=== PATIENT | female | born 1960 | race Caucasian/White ===

== ENCOUNTER 2017-02-22 10:35 | Outpatient (CLI) | payer BC ==
[~2017-02-22] VITALS: Ht 157.5 cm; Wt 105.2 kg
[~2017-02-22 10:35] MED LIST: ATEN-156; ATEN50TA PO; ATN50T; CARB1TAB44 PO; CITA10TA70; CTLP20T; DULO60CA6; DULO60CA6 PO; EST.625T; EST.625T PO; EST1.25T; LAMO200T3 PO; NF-CYM60C; OMEP-10 PO; TPR100T; TRIA1CAP4 PO; TRIA1TAB3; [UNRECOGNIZED DRUG - CODE]
[2017-02-22] MEDS ORDERED: TRIAMCINOLONE ACET (KENALOG-40) 40 MG/ML 1 ML VIAL ONE (10:39)
[2017-02-22] MEDS ORDERED: BUPIVACAINE 0.25% 30 ML (SENSORCAINE) VIAL ONE (10:39)
[2017-02-22 11:02] VITALS: BP 144/82
[2017-02-22 11:46] VITALS: BP 152/83
--- NOTE | 2017-02-22 12:25 | Pain Medicine-Procedure ---
Procedure Pre-Op/Post-Op Diagnosis Diagnosis: disc disorder with radiculopathy, lumbar Indications for Operation Low back pain Attending Surgeon Harpreet Procedure Date of Service: Feb 22, 2017 Procedure: Lumbar Epidural Steroid Injection at the L4-L5 level under Fluoroscopic Guidance Procedure: Patient was identified in the holding area. After risks, benefits, and alternatives were discussed with the patient, informed consent was obtained. Patient was brought to the fluoroscopy suite and placed prone on the procedure room table. A time out was performed. Vital signs were monitored throughout the procedure. The patients low back was prepped and draped in the usual sterile fashion. The patients skin was anesthetized using 2% Lidocaine. A Tuohy needle was inserted and advanced to the L4-L5 epidural space under fluoroscopic guidance using the loss of resistance technique and intermittent projection of fluoroscopy. There was no paresthesia with needle placement. The needle position was confirmed in both the AP and lateral view. After negative aspiration 2ml of contrast was injected under live fluoroscopy which showed good spread of the contrast in the epidural space at the appropriate level, there was no intravascular or subarachnoid spread. Again, after negative aspiration for heme or CSF, 2 ml of 0.25% Bupivicaine, 2ml of preservative free normal saline, and 80mg of Kenalog was injected. The needle was removed and a sterile bandage was placed and the patient was transferred to the recovery area in stable condition. After a brief period of observation, patient was discharged to home with no new neurological deficits and no apparent complications. Complications None RUBEN ROGERS MD Feb 22, 2017 12:24 pm
== END 2017-02-22 11:47 ==
LOC: CARD 10:35
PROVIDERS: ATTEND Pain Medicine Pain Medicine
DX: M51.16 Intervertebral disc disorders with radiculopathy, lumbar region (principal); M53.3 Sacrococcygeal disorders, not elsewhere classified; Z79.899 Other long term (current) drug therapy
CPT/HCPCS: 62323; 82962

== ENCOUNTER → 2018-11-04 | Outpatient (CLI) | payer BC | LOC: CARD 13:14 | PROVIDERS: ATTEND Internal Medicine Cardiovascular Disease | DX: R07.9 Chest pain, unspecified (principal); E78.2 Mixed hyperlipidemia; I10 Essential (primary) hypertension; E11.9 Type 2 diabetes mellitus without complications; I08.2 Rheumatic disorders of both aortic and tricuspid valves | CPT/HCPCS: 93306 ==

== ENCOUNTER → 2018-11-19 | Outpatient (CLI) | payer BC ==
[~2018-11-19] MED LIST changes: +REGADENOSON 0.4 MG/5 ML SYR (LEXISCAN) IV ONE
[2018-11-19] MEDS: CATHETER FLUSH 10 ML SYR IV PRN ×2 (07:34→09:00)
[2018-11-19 08:59] VITALS: BP 139/60
--- NOTE | 2018-11-20 06:57 | STRESS TEST ---
DATE OF SERVICE: 11/19/2018 LEXISCAN MYOVIEW STRESS TEST REPORT REFERRING PHYSICIAN: Dr. Do. Baseline heart rate is 66. Baseline blood pressure is 128/55. Baseline EKG is sinus rhythm with no ischemic changes. In summary, the patient was injected with 10.51 mCi of technetium-99 Myoview and the resting images were obtained. Then, the patient received 0.4 mg of Lexiscan followed by 31.0 mCi of technetium-99 Myoview. Throughout the test, there were no EKG changes. The resting and stress images were reviewed in the short axis, horizontal long axis and vertical long axis views. Review of the images showed breast attenuation with reversible ischemia involving the mid to apical anterior wall and anterolateral wall. SSS is 7, SDS 7 and TID value 1.93. On the gated images, the left ventricle appeared to be normal in size with normal contractility. Calculated ejection fraction is 66%. CONCLUSION: 1. The patient tolerated Lexiscan well. 2. Breast attenuation with reversible ischemia involving the mid to apical anterior wall and anterolateral wall. 3. Transient ischemic dilatation with TID value 1.9 4. Normal left ventricular size with normal contractility. 5. Calculated ejection fraction is 66%. Job ID: [id number] DocumentID: [id number] Dictated Date: 11/20/2018 06:41:37 Pony Ride Operator Date: 11/20/2018 06:57:02 Dictated By: BLU MIRANDA MD
== END ==
LOC: CARD 07:19
PROVIDERS: ATTEND Internal Medicine Cardiovascular Disease
DX: R07.9 Chest pain, unspecified (principal); E78.2 Mixed hyperlipidemia; I10 Essential (primary) hypertension; E11.9 Type 2 diabetes mellitus without complications
CPT/HCPCS: 78452; 93017

== ENCOUNTER 2018-12-03 06:39 | Day surgery (SDC) | payer BC ==
[~2018-12-03] VITALS: Ht 157.5 cm; Wt 105.2 kg
[2018-12-03] VITALS (12 sets, daily range): BP systolic 112–139; BP diastolic 52–85
[~2018-12-03 06:39] MED LIST changes: -REGADENOSON 0.4 MG/5 ML SYR (LEXISCAN) IV ONE
--- OUTSIDE RECORDS SUMMARY | 2018-12-03 06:42 | XMS REPORT | Continuity of Care Document ---
Author Author [facility] Organization [facility] Address Unknown Phone Unavailable Allergies Active Description Code Type Severity Reaction Onset Reported/Identified Relationship to Patient Clinical Status Yes NO KNOWN DRUG ALLERGIES UNKNOWN NO KNOWN DRUG ALLERG Yes NKANo Known Allergies NKA Miscellaneous Allergy Unknown N/A 04/25/2012 Medications Medication Packaging Start Date Stop Date Route Dosage Sig NORMAL SALINE 1000CC IV BAG INJ 0.9 % (NS 1000CC IV BAG) ml 03/19/2018 03/19/2018 ONCE&1411 ONDANSETRON VIAL INJ 4 MG/2CC (ZOFRAN 2CC VIAL) MG 03/19/2018 03/19/2018 PRN ONCE KETOROLAC VIAL INJ 30 MG/CC (TORADOL VIAL) MG 03/19/2018 03/19/2018 ONCE&1450 CEFTRIAXONE PREMIX IV BAG IV 1 GM/50CC (ROCEPHIN PREMIX IV BAG) GM 03/19/2018 03/19/2018 ONCE&1727 Problems Date Dx Coded Attending Type Code Diagnosis Diagnosed By 09/24/2014 KEI LE MD Ot 345.90 EPILEPSY UNSPEC W/O MENTION INTRACTABLE 09/24/2014 KEI LE MD Ot 780.54 HYPERSOMNIA, UNSPECIFIED 09/24/2014 KEI LE MD Ot 786.09 RESPIRATORY ABNORM NEC 11/08/2014 RUBEN ROGERS MD Ot 721.3 LUMBOSACRAL SPONDYLOSIS 11/08/2014 RUBEN ROGERS MD, Ot 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 DISC DEGEN 11/08/2014 RUBEN ROGERS MD Ot V58.69 OTH MED,LT,CURRENT USE 04/25/2015 RUBEN ROGERS MD, Ot 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 DISC DEGEN 09/30/2015 RUBEN ROGERS MD Ot E66.01 MORBID (SEVERE) OBESITY DUE TO EXCESS CA 09/30/2015 RUBEN ROGERS MD Ot M47.816 SPONDYLOSIS W/O MYELOPATHY OR RADICULOPA 09/30/2015 RUBEN ROGERS MD, Ot M51.16 INTERVERTEBRAL DISC DISORDERS W RADICULO 09/30/2015 RUBEN ROGERS MD, Ot Z68.41 BODY MASS INDEX (BMI) 40.0-44.9, ADULT 09/30/2015 RUBEN ROGERS MD, Ot Z79.899 OTHER INTERMEDIATE (CURRENT) DRUG THERAPY 02/24/2016 RUBEN ROGERS MD Ot E66.01 MORBID (SEVERE) OBESITY DUE TO EXCESS CA 02/24/2016 RUBEN ROGERS MD Ot M47.816 SPONDYLOSIS W/O MYELOPATHY OR RADICULOPA 02/24/2016 RUBEN ROGERS MD, Ot M51.16 INTERVERTEBRAL DISC DISORDERS W RADICULO 02/24/2016 RUBEN ROGERS MD, Ot M53.3 SACROCOCCYGEAL DISORDERS, NOT ELSEWHERE 02/24/2016 RUBEN ROGERS MD, Ot Z68.41 BODY MASS INDEX (BMI) 40.0-44.9, ADULT 02/24/2016 RUBEN ROGERS MD, Ot Z79.899 OTHER INTERMEDIATE (CURRENT) DRUG THERAPY 03/08/2016 RUBEN ROGERS MD, Ot E66.01 MORBID (SEVERE) OBESITY DUE TO EXCESS CA 03/08/2016 RUBEN ROGERS MD, Ot M47.816 SPONDYLOSIS W/O MYELOPATHY OR RADICULOPA 03/08/2016 RUBEN ROGERS MD, Ot M51.16 INTERVERTEBRAL DISC DISORDERS W RADICULO 03/08/2016 RUBEN ROGERS MD, Ot M53.3 SACROCOCCYGEAL DISORDERS, NOT ELSEWHERE 03/08/2016 RUBEN ROGERS MD, Ot Z68.41 BODY MASS INDEX (BMI) 40.0-44.9, ADULT 03/08/2016 RUBEN ROGERS MD, Ot Z79.899 OTHER BLEACH MAKER (CURRENT) DRUG THERAPY 10/26/2016 RUBEN ROGERS MD, Ot M51.16 INTERVERTEBRAL DISC DISORDERS W RADICULO 10/26/2016 RUBEN ROGERS MD, Ot Z79.899 OTHER BLEACH MAKER (CURRENT) DRUG THERAPY 11/21/2016 RUBEN ROGERS MD, Ot M51.16 INTERVERTEBRAL DISC DISORDERS W RADICULO 11/21/2016 RUBEN ROGERS MD, Ot Z79.899 OTHER INTERMEDIATE (CURRENT) DRUG THERAPY 02/22/2017 SUE LUCAS, RUBEN Parnell Ot M51.16 INTERVERTEBRAL DISC DISORDERS W RADICULO 02/22/2017 SUE LUCAS, RUBEN Parnell Ot M53.3 SACROCOCCYGEAL DISORDERS, NOT ELSEWHERE 02/22/2017 SUE LUCAS, RUBEN Parnell Ot Z79.899 OTHER BLEACH MAKER (CURRENT) DRUG THERAPY 10/12/2017 CaioNadir 786.2 COUGH 10/12/2017 Caio Nadir Carol R05 COUGH 12/11/2017 Hi, Emily W 345.90 EPILEPSY, UNSPECIFIED, WITHOUT MENTION OF INTRACTABLE EPILEPSY 12/11/2017 Hi, Emily W G40.909 EPILEPSY, UNSPECIFIED, NOT INTRACTABLE, WITHOUT STATUS EPILEPTICUS 12/11/2017 Hi, Emily W 345.90 EPILEPSY, UNSPECIFIED, WITHOUT MENTION OF INTRACTABLE EPILEPSY 12/11/2017 Hi, Emily W 401.1 BENIGN ESSENTIAL HYPERTENSION 12/11/2017 Hi, Emily W 724.2 LUMBAGO 12/11/2017 Hi, Emily W G40.909 EPILEPSY, UNSPECIFIED, NOT INTRACTABLE, WITHOUT STATUS EPILEPTICUS 12/11/2017 Hi, Emily W I10 ESSENTIAL (PRIMARY) HYPERTENSION 12/11/2017 Hi, Emily W M54.5 LOW BACK PAIN 12/11/2017 Hi, Emily W 345.90 EPILEPSY, UNSPECIFIED, WITHOUT MENTION OF INTRACTABLE EPILEPSY 12/11/2017 Hi, Emily W 401.1 BENIGN ESSENTIAL HYPERTENSION 12/11/2017 Hi, Emily W 724.2 LUMBAGO 12/11/2017 Hi, Emily W G40.909 EPILEPSY, UNSPECIFIED, NOT INTRACTABLE, WITHOUT STATUS EPILEPTICUS 12/11/2017 Hi, Emily W I10 ESSENTIAL (PRIMARY) HYPERTENSION 12/11/2017 Hi, Emily W M54.5 LOW BACK PAIN 12/11/2017 Hi, Emily W 345.90 EPILEPSY, UNSPECIFIED, WITHOUT MENTION OF INTRACTABLE EPILEPSY 12/11/2017 Hi, Emily W 401.1 BENIGN ESSENTIAL HYPERTENSION 12/11/2017 Hi, Emily W 724.2 LUMBAGO 12/11/2017 Hi, Emily W G40.909 EPILEPSY, UNSPECIFIED, NOT INTRACTABLE, WITHOUT STATUS EPILEPTICUS 12/11/2017 Hi, Emily W I10 ESSENTIAL (PRIMARY) HYPERTENSION 12/11/2017 Hi, Emily W M54.5 LOW BACK PAIN 01/22/2018 Hi, Emily W 724.4 THORACIC OR LUMBOSACRAL NEURITIS OR RADICULITIS, UNSPECIFIED 01/22/2018 Hi, Emily W M51.16 INTERVERTEBRAL DISC DISORDERS W RADICULOPATHY, LUMBAR REGION 02/26/2018 Hi, Emily A 724.4 THORACIC OR LUMBOSACRAL NEURITIS OR RADICULITIS, UNSPECIFIED 02/26/2018 Hi, Emily A M51.16 INTERVERTEBRAL DISC DISORDERS W RADICULOPATHY, LUMBAR REGION 03/19/2018 Hi, Emily W 787.01 NAUSEA WITH VOMITING 03/19/2018 Hi, Emily W 787.91 DIARRHEA 03/19/2018 Hi, Emily A 789.03 ABDOMINAL PAIN, RIGHT LOWER QUADRANT 03/19/2018 Hi, Emily A R10.31 RIGHT LOWER QUADRANT PAIN 03/19/2018 Rosie Doa W R11.2 NAUSEA WITH VOMITING, UNSPECIFIED 03/19/2018 Hi, Emily W R19.7 DIARRHEA, UNSPECIFIED 09/28/2018 Hi, Emily W 272.4 OTHER AND UNSPECIFIED HYPERLIPIDEMIA 09/28/2018 Hi, Emily W 401.0 MALIGNANT ESSENTIAL HYPERTENSION 09/28/2018 Hi, Emily W 790.99 OTHER NONSPECIFIC FINDINGS ON EXAMINATION OF BLOOD 09/28/2018 Rosie Doa W E11.69 TYPE 2 DIABETES MELLITUS WITH OTHER SPECIFIED COMPLICATION 09/28/2018 Rosie Doa W E78.5 HYPERLIPIDEMIA, UNSPECIFIED 09/28/2018 Hi Emily W I10 ESSENTIAL (PRIMARY) HYPERTENSION 09/28/2018 Hi, Emily W 272.4 OTHER AND UNSPECIFIED HYPERLIPIDEMIA 09/28/2018 Hi, Emily W 277.7 DYSMETABOLIC SYNDROME X 09/28/2018 Hi, Emily W 345.90 EPILEPSY, UNSPECIFIED, WITHOUT MENTION OF INTRACTABLE EPILEPSY 09/28/2018 Hi, Emily W 401.0 MALIGNANT ESSENTIAL HYPERTENSION 09/28/2018 Hi, Emily W 790.99 OTHER NONSPECIFIC FINDINGS ON EXAMINATION OF BLOOD 09/28/2018 Rosie Doa W E11.69 TYPE 2 DIABETES MELLITUS WITH OTHER SPECIFIED COMPLICATION 09/28/2018 Hi, Emily W E78.5 HYPERLIPIDEMIA, UNSPECIFIED 09/28/2018 Hi, Emily W E88.81 METABOLIC SYNDROME 09/28/2018 Hi, Emily W G40.909 EPILEPSY, UNSPECIFIED, NOT INTRACTABLE, WITHOUT STATUS EPILEPTICUS 09/28/2018 Hi, Emily W I10 ESSENTIAL (PRIMARY) HYPERTENSION 09/28/2018 Hi, Emily W 272.4 OTHER AND UNSPECIFIED HYPERLIPIDEMIA 09/28/2018 Hi, Emily W 277.7 DYSMETABOLIC SYNDROME X 09/28/2018 Hi, Emily W 345.90 EPILEPSY, UNSPECIFIED, WITHOUT MENTION OF INTRACTABLE EPILEPSY 09/28/2018 Hi, Emily W 401.0 MALIGNANT ESSENTIAL HYPERTENSION 09/28/2018 Hi, Emily W 790.99 OTHER NONSPECIFIC FINDINGS ON EXAMINATION OF BLOOD 09/28/2018 Hi, Emily W E11.69 TYPE 2 DIABETES MELLITUS WITH OTHER SPECIFIED COMPLICATION 09/28/2018 Hi, Emily W E78.5 HYPERLIPIDEMIA, UNSPECIFIED 09/28/2018 Hi, Emily W E88.81 METABOLIC SYNDROME 09/28/2018 Hi, Emily W G40.909 EPILEPSY, UNSPECIFIED, NOT INTRACTABLE, WITHOUT STATUS EPILEPTICUS 09/28/2018 Hi, Emily W I10 ESSENTIAL (PRIMARY) HYPERTENSION 09/28/2018 Hi, Emily W 272.4 OTHER AND UNSPECIFIED HYPERLIPIDEMIA 09/28/2018 Hi, Emily W 277.7 DYSMETABOLIC SYNDROME X 09/28/2018 Hi, Emily W 345.90 EPILEPSY, UNSPECIFIED, WITHOUT MENTION OF INTRACTABLE EPILEPSY 09/28/2018 Hi, Emily W 401.0 MALIGNANT ESSENTIAL HYPERTENSION 09/28/2018 Hi, Emily W 790.99 OTHER NONSPECIFIC FINDINGS ON EXAMINATION OF BLOOD 09/28/2018 Hi, Emily W E11.69 TYPE 2 DIABETES MELLITUS WITH OTHER SPECIFIED COMPLICATION 09/28/2018 Hi, Emily W E78.5 HYPERLIPIDEMIA, UNSPECIFIED 09/28/2018 Hi, Emily W E88.81 METABOLIC SYNDROME 09/28/2018 Hi, Emily W G40.909 EPILEPSY, UNSPECIFIED, NOT INTRACTABLE, WITHOUT STATUS EPILEPTICUS 09/28/2018 Hi, Emily W I10 ESSENTIAL (PRIMARY) HYPERTENSION 10/28/2018 Hi, Emily W 786.5 CHEST PAIN 10/28/2018 Emily Do W R07.9 CHEST PAIN, UNSPECIFIED 10/28/2018 Emily Do W 786.5 CHEST PAIN 10/28/2018 Emily Do W R07.9 CHEST PAIN, UNSPECIFIED 11/05/2018 BLU MIRANDA MD Ot E11.9 TYPE 2 DIABETES MELLITUS WITHOUT COMPLIC 11/05/2018 BLU MIRANDA MD Ot E78.2 MIXED HYPERLIPIDEMIA 11/05/2018 BLU MIRANDA MD Ot 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 11/05/2018 BLU MIRANDA MD Ot I10 ESSENTIAL (PRIMARY) HYPERTENSION 11/05/2018 BLU MIRANDA MD Ot R07.9 CHEST PAIN, UNSPECIFIED 11/21/2018 BLU MIRANDA MD Ot E11.9 TYPE 2 DIABETES MELLITUS WITHOUT COMPLIC 11/21/2018 BLU MIRANDA MD Ot E78.2 MIXED HYPERLIPIDEMIA 11/21/2018 BLU MIRANDA MD Ot I10 ESSENTIAL (PRIMARY) HYPERTENSION 11/21/2018 BLU MIRANDA MD Ot R07.9 CHEST PAIN, UNSPECIFIED 11/21/2018 BLU MIRANDA MD Ot E11.9 TYPE 2 DIABETES MELLITUS WITHOUT COMPLIC 11/21/2018 BLU MIRANDA MD Ot E78.2 MIXED HYPERLIPIDEMIA 11/21/2018 BLU MIRANDA MD Ot 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 Results Test Result Range Capillary blood glucose measurement by glucometer (mass/volume) - 10/26/16 12: 19 Capillary blood glucose measurement by glucometer (mass/volume) 98 mg/dL 70-110 VIT B-12 - 12/01/16 11:58 Vitamin B12 382.00 pg/mL 213.00-816.00 Capillary blood glucose measurement by glucometer (mass/volume) - 02/22/17 11: 07 Capillary blood glucose measurement by glucometer (mass/volume) 106 mg/dL 70-110 Urine Culture - 03/11/17 16:20 PRELIM CULTURE RESULTS 10,000-20,000 Gram Positive and Gram Negative Mixed [id number] Probable Skin Contaminant FINAL CULTURE RESULTS No Further Workup done MEDIA PLATED Setup at 18:45 on 03/11/2017 CULTURE SOURCE voided urine Sed Rate - 05/10/17 12:13 Sed Rate 13 mm/hr 9-15 Urine Culture - 05/10/17 12:13 PRELIM CULTURE RESULTS 10,000-20,000 Gram Positive Mixed Mai FINAL CULTURE RESULTS 10,000-20,000 Gram Positive Mixed Mai MEDIA PLATED Setup at 14:33 on 05/10/2017 CULTURE SOURCE clean catch Mycoplasma - 10/12/17 12:35 Mycoplasma Negative Negative Zonisamide(Zonegran), Serum - 12/11/17 08:25 Zonisamide 10.2 ug/mL 10.0-40.0 Thyroid Stimulating Hormone - 12/11/17 08:25 TSH 1.74 mIU/mL 0.32-5.00 Zonisamide, Serum - 12/11/17 08:25 ZONISAMIDE 10.2 UG/ML 10.0-40.0 Hemoglobin A1C - 12/11/17 08:25 % A1C 5.90 % 5.40-6.60 AvGlu 133 mg/dL 70-110 Comprehensive Metabolic Panel - 03/19/18 14:11 Albumin 4.5 g/dL 3.6-5.1 ALP 54 U/L 35-130 ALT 8 U/L 6-45 Anion Gap 18 6-14 AST 19 U/L 2-40 BUN 17 mg/dL 5-25 Calcium 9.9 mg/dL 8.3-10.4 Chloride 101 mmol/L 95-114 CO2 23 mEq/L 22-33 Creat 1.03 mg/dL 0.50-1.50 eGFR 55 mL/min/1.73m2 >59 Globulin 3.2 g/dL 2.3-3.5 Glucose 128 mg/dL 70-110 Osmo 288 280-295 Potassium 3.6 mmol/L 3.5-5.3 Sodium 138 mmol/L 134-148 TBil 0.8 mg/dL 0.2-1.2 TP 7.7 g/dL 6.0-8.3 Vitamin C - 09/28/18 09:12 Vitamin C TNP mg/dL Request Problem - 09/28/18 09:12 Request Problem TNP Thyroid Stimulating Hormone - 09/28/18 09:12 TSH 1.95 mIU/mL 0.32-5.00 Vitamin C - 10/05/18 11:35 Vitamin C 0.8 mg/dL 0.2-2.0 Vitamin C - 10/05/18 11:35 VITAMIN C 0.8 MG/DL 0.2-2.0 Cardiac Panel - 10/28/18 15:38 CK 59 U/L 26-174 CK-MB 1.9 ng/ml 0.0-9.2 Myoglobin 42.0 ng/ml 1.6-106.0 Troponin <0.020 ng/mL 0.0-0.4 Encounters ACCT No. Visit Date/Time Discharge Status Pt. Type Provider Facility Loc./Unit Complaint [id number] 11/19/2018 07:19:00 11/19/2018 23:59:59 CLS Outpatient BLU MIRANDA MD [facility] CARD CHEST PAIN [id number] 11/04/2018 13:14:00 11/04/2018 23:59:59 CLS Outpatient BLU MIRANDA MD [facility] CARD CHEST PAIN [id number] 02/22/2017 10:35:00 02/22/2017 11:47:00 DIS Outpatient RUBEN ROGERS MD [facility] CARD DISC DISORDER [id number] 10/26/2016 11:54:00 10/26/2016 12:50:00 DIS Outpatient RUBEN ROGERS MD [facility] CARD DISC DISORDER [id number] 02/24/2016 08:30:00 02/24/2016 10:01:00 DIS Outpatient RUBEN ROGERS MD [facility] CARD DISC DISORDER, SACROCOCCYGEAL DISORDER [id number] 09/30/2015 09:54:00 09/30/2015 11:39:00 DIS Outpatient RUBEN ROGERS MD [facility] DISC DISORDER WITH LUMBAR [id number] 04/25/2015 13:09:00 04/25/2015 14:27:00 DIS Outpatient RUBEN ROGERS MD [facility] CARD DDD [id number] 11/08/2014 13:00:00 11/08/2014 14:05:00 DIS Outpatient RUBEN ROGERS MD [facility] CARD DEGENERATIVE DISC DISEASE LUMBAR [id number] 09/23/2014 21:05:00 09/24/2014 06:45:00 DIS Outpatient REY LUCAS, KEI Ch [facility] SLEEP MARTIN [id number] 12/03/2018 06:39:00 ACT Outpatient RUTH LUCAS, BLU Parnell [facility] CATH ABN CP,SOB,CP [id number] 09/30/2018 11:22:00 Document Registration [id number] 10/09/2018 10:13:00 Document Registration [id number] 12/13/2017 12:19:00 Document Registration [id number] 10/28/2018 15:34:00 10/28/2018 23:59:00 DIS Outpatient Emily Do [id number] 10/05/2018 11:35:00 10/05/2018 23:59:00 DIS Outpatient Emily Do [id number] 09/28/2018 09:12:00 09/28/2018 23:59:00 DIS Outpatient Emily Do [id number] 03/19/2018 14:01:00 03/19/2018 18:15:00 DIS Outpatient Emily Do [id number] 01/13/2018 15:45:00 02/26/2018 16:25:00 DIS Outpatient Emily Do [id number] 12/11/2017 08:19:00 12/11/2017 23:59:00 DIS Outpatient Emily Do [id number] 10/12/2017 12:34:00 10/12/2017 23:59:00 DIS Outpatient Nadir Kearney [id number] 10/12/2017 12:09:00 10/12/2017 23:59:00 DIS Outpatient Nadir Kearney [id number] 05/10/2017 12:04:00 05/10/2017 23:59:00 DIS Outpatient Emily Do [id number] 03/11/2017 18:26:00 03/11/2017 23:59:00 DIS Outpatient Emily Do [id number] 12/30/2016 00:00:00 12/30/2016 23:59:00 DIS Outpatient GENTRY SOLORZANO [id number] 12/01/2016 11:57:00 12/01/2016 23:59:00 DIS Outpatient Emily Do [id number] 03/19/2018 14:13:43 Document Registration [id number] 12/11/2017 08:19:00 Document Registration [id number] 04/25/2015 13:09:59 ACT Document Registration
[2018-12-03] MEDS ORDERED: LIDOCAINE 1% INJ 20 ML 20 ML VIAL ONE (06:50)
[2018-12-03] MEDS ORDERED: HEParin (CATH LAB) 2,000 ML IV ONE (06:50)
[2018-12-03] MEDS: NS IV 1000 ML 1,000 ML IV SCH ×2 (07:12→11:17)
[2018-12-03 07:21] LABS: HEMOGLOBIN 14.8 G/DL (11.5-16.0); MEAN PLATELET VOLUME 10.2 FL (7.4-10.4); RED BLOOD COUNT 4.82 10^6/uL (4.35-5.85); RED CELL DISTRIBUTION WIDTH 12.9 % (10.0-14.5); WHITE BLOOD COUNT 7.3 10^3/uL (4.3-11.0)
[2018-12-03] MEDS ORDERED: GABA-488 PO (07:31)
[2018-12-03] MEDS ORDERED: METF750T2 PO (07:31)
[2018-12-03] MEDS ORDERED: ZONI100C3 PO (07:31)
[2018-12-03] MEDS ORDERED: MELO15TA39 PO (07:31)
[2018-12-03] MEDS ORDERED: NF-SOLIF5T PO (07:31)
[2018-12-03] MEDS ORDERED: LORA0.5T PO (07:31)
[2018-12-03] MEDS ORDERED: ATOR20TA66 PO (07:31)
[2018-12-03] MEDS ORDERED: fentaNYL INJECTION 100 MCG/2 ML AMP ONE (07:33)
[2018-12-03] MEDS ORDERED: MIDAZOLAM 5 MG/5 ML (VERSED) VIAL ONE (07:33)
[2018-12-03 07:37] LABS: INR 0.9 (0.8-1.4); PROTHROMBIN TIME PATIENT 12.4 SEC (12.2-14.7)
[2018-12-03 07:41] LABS: BILIRUBIN,URINE NEGATIVE (NEGATIVE); CLARITY,URINE CLEAR; COLOR,URINE YELLOW; GLUCOSE, URINE (UA) NEGATIVE (NEGATIVE); KETONES,URINE NEGATIVE (NEGATIVE); LEUKOCYTE ESTERASE ,URINE 2+ (NEGATIVE); NITRITE,URINE NEGATIVE (NEGATIVE); PH,URINE 6.5 (5-9); PROTEIN,URINE NEGATIVE (NEGATIVE); UROBILINOGEN,URINE 1 MG/DL (NORMAL)
[2018-12-03 07:46] LABS: ALBUMIN 4.3 GM/DL (3.2-4.5); BILIRUBIN,TOTAL 0.6 MG/DL (0.1-1.0); CALCIUM 9.3 MG/DL (8.5-10.1); CREATININE SERUM 0.95 MG/DL (0.60-1.30); TOTAL PROTEIN 7.1 GM/DL (6.4-8.2)
--- NOTE | 2018-12-03 07:48 | Diagnostic Imaging Report ---
INDICATION: Preop screening. FINDINGS: Portable chest. Lungs are well-aerated and clear. The heart is not enlarged. There is no pulmonary edema. No pneumothorax or pleural effusion. No bony abnormality. IMPRESSION: Normal portable chest. Dictated by: Dictated on workstation # [id number]
[2018-12-03 08:02] LABS: BACTERIA,URINE TRACE /HPF
--- NOTE | 2018-12-03 08:11 | Cardiac Procedure Note-CS/ASA ---
Pre-Procedure Note Pre-Op Procedure Note H&P Reviewed The H&P was reviewed, patient examined and no changes noted. Date H&P Reviewed: Dec 03, 2018 Time H&P Reviewed: 08:11 Conscious Sedation Pre-Proced Time 08:11 ASA Score 3 For ASA 3 and 4: Consider anesthesia and medical clearance. Also, for patients with a history of failed moderate sedation consider anesthesia. Airway Lungs Heart ASA score ASA 1: a normal healthy patient ASA 2: a patient with a mild systemic disease (mid diabetes, controlled hypertension, obesity x ASA 3: a patient with a severe systemic disease that limits activity (angina , COPD, prior Myocardial infarction) ASA 4: a patient with an incapacitating disease that is a constant threat to life (CHF, renal failure) ASA 5: a moribund patient not expected to survive 24 hrs. (ruptured aneurysm) ASA 6: a declared brain patient whose organs are being harvested. For emergent operations, add the letter E after the classification Mallampati Classification Grade 3 Sedation Plan Analgesia, Amnesia, Plan communicated to team members, Discussed options with patient/fam, Discussed risks with patient/fam The patient is an appropriate candidate to undergo the planned procedure, sedation, and anesthesia. The patient immediately re-assessed prior to indication. BLU MIRANDA MD Dec 03, 2018 08:11
[2018-12-03] MEDS ORDERED: HEParin 1000 UNIT/ML (10ML VIAL) FOR BOLUS ONE (08:25)
[2018-12-03] MEDS ORDERED: ADENOSINE 3 MG/1 ML (ADENOSCAN) 30ML VIAL IV ONE ×2 (08:25)
[2018-12-03] MEDS ORDERED: NS IV 1000 ML 1,000 ML IV SCH (08:43)
[2018-12-03] MEDS ORDERED: PATIENT MAY USE OWN MEDS, ALL PO SCH (08:45)
--- NOTE | 2018-12-03 08:47 | Discharge Inst-Post CATH ---
Discharge Inst-CATH/EP Post Cardiac Cath/EP D/C Inst Follow Up/Plan Hold metformin for [address] Post's office in 2-4 weeks CARDIAC CATH DISCHARGE INSTRUCTIONS *Hold Metformin for 48 hours post heart cath. ACTIVITY * Go Home directly and rest. * Limit activity of the leg (or wrist if it was used) for 7 days including aerobics, swimming, jogging, bicycling, etc. * Restrict stair-climbing for 7 days if possible, if not, climb up with your non -cath leg, then bring together on the same step. * Avoid lifting, pushing, pulling or excessive movement of the affected extremity for 7 days. * Customary sexual activity may be resumed after 2 days-use caution not to use a position that strains or causes pain to the affected extremity. * No driving for 24 hours. * NO SMOKING. * Avoid straining for bowel movements for 7 days. * Gentle walking on level ground is allowed. * Returning to work will depend on the type of procedure and the results. Your doctor will discuss this with you. CALL YOUR DOCTOR FOR ANY OF THE FOLLOWING: *If bleeding from the puncture site occurs- Apply gentle pressure to site with clean cloth and call your doctor or EMS. * If a knot or lump forms under the skin, increases in size, or causes pain. * If bruising appears to be worsening or moving further down your leg instead of disappearing. * Temperature above 101 F. CARE OF YOUR GROIN INCISION; * Bruising or purple discoloration of the skin near the puncture site is common. * You may shower only, no bathtub bathing for 5 days. Be careful to avoid slipping as your leg may feel stiff. * If a closure device was used on your femoral artery, please see the attached guide regarding care of the device and your leg. * Leave the dressing on, until removed by office staff. CARE OF YOUR WRIST INCISION; * Bruising or purple discoloration of the skin near the puncture site is common. * You may shower. * DO NOT submerge wrist. * Leave dressing on, until removed by office staff.. BLU POST MD Dec 03, 2018 08:47
--- NOTE | 2018-12-03 08:53 | Cardiac Cath Report ---
Cardiac Cath Report Physician (s)/Head Control Clerk (s) Physician BLU MIRANDA MD Pre-Procedure Diagnosis Pre-Procedure Diagnosis: chest pain, coronary artery disease Post-Procedure Note Procedure Start Date: Dec 03, 2018 Name of Procedure: left heart catheterization FFR to the LAD Findings/Procedure Note PROCEDURE NOTE: 58 years old lady with history of diabetes mellitus, hypertension hyperlipidemia has been having recurrent chest pain, had abnormal stress test with anterior wall ischemia and transient ischemic dilatation, scheduled for cardiac catheterization possible PTCA. After explaining the procedure to the patient, all pros and cons were explained , all questions were answered. The patient signed the consent and then she was placed on the cardiac catheterization laboratory. Groin was prepped SL fashion local anesthesia was used. Sheath placed in the Right femoral artery. Irais right and left catheter were used to access the coronary system. Pigtail was used to access the left ventricular cavity. Left ventriculogram was not done, pressure was measured Patient had borderline lesion in the mid LAD, 4000 units of heparin was given then FL guide was advanced and pressure wire was advanced to the distal LAD, baseline FFR was 0.97, started on Adenosine challenge drip, the lowest FFR was 0.92. Angiogram post FFR showed no complication At the end of the procedure the sheath was removed. Closure device was used FINDINGS: Hemodynamics LV 146/22, end-diastolic pressure of 22 Aorta 146/74 mean of 107 ANATOMY: Left Main has mild disease Left Anterior Descending has 50 percent mid LAD stenosis, FFR after Adenosine was 0.92, nonobstructive disease. Second diagonal branch has 70 percent lesion , fairly small artery less than 1 mm in diameter Left Circumflex is moderate in size with mild disease nonobstructive disease Right Coronory Artery is moderate in size with mild disease nonobstructive disease LV Gram was not done, pressure was measured CONCLUSION: 1. 50 percent mid LAD stenosis, FFR 0.92 after Adenosine a challenge, nonobstructive disease 2. 70 percent mid second diagonal artery stenosis, fairly small artery less than 1 mm in diameter. Not amendable to intervention 3. Mild disease in the circumflex and right coronary artery nonobstructive disease DISCUSSION AND RECOMMENDATION: continue maximizing medical therapy, no intervention is warranted Anesthesia Type: Conscious Sedation Estimated blood loss (mL): 15 ml Contrast Amount: 60 ml Total Radiation Dose: 524 mGy Post-Procedure Diagnosis Post-operative diagnosis: Chest pain Coronary artery disease Hypertension Hyperlipidemia BLU MIRANDA MD Dec 03, 2018 08:53
[2018-12-03] MEDS ORDERED: ASPIRIN E.C. 81 MG (ECOTRIN) TAB PO SCH (09:00)
== END 2018-12-03 15:25 | disposition home or self-care (01) ==
LOC: CATH 06:39 → SDC 09:10 → CATH 15:25
PROVIDERS: ATTEND Internal Medicine Cardiovascular Disease
DX: R07.9 Chest pain, unspecified (principal); I25.10 Atherosclerotic heart disease of native coronary artery without angina pectoris; I10 Essential (primary) hypertension; E78.2 Mixed hyperlipidemia; E11.9 Type 2 diabetes mellitus without complications; G40.909 Epilepsy, unspecified, not intractable, without status epilepticus; F32.9 Major depressive disorder, single episode, unspecified; I65.23 Occlusion and stenosis of bilateral carotid arteries; E66.9 Obesity, unspecified; Z79.899 Other long term (current) drug therapy; Z79.84 Long term (current) use of oral hypoglycemic drugs; Z68.41 Body mass index [BMI] 40.0-44.9, adult
CPT/HCPCS: 36415; 36430; 71045; 80053; 80061; 81000; 85027; 85610; 85730; 87081; 87088; 93458

== ENCOUNTER 2021-04-28 05:49 | Outpatient (CLI) | payer BC ==
[~2021-04-28] VITALS: Ht 157.5 cm; Wt 86.8 kg
[~2021-04-28 05:49] MED LIST changes: +ATOR20TA66 PO; +GABA-488 PO; +LORA0.5T PO; +MELO15TA39 PO; +METF750T45 PO; +NF-SOLIF5T PO; +ZONI100C29 PO
[2021-04-28] MEDS ORDERED: LORA-404 PO (12:28)
[2021-04-28] MEDS ORDERED: CARB1TAB19 PO (12:28)
[2021-04-28] MEDS ORDERED: ATEN50TA PO (12:28)
[2021-04-28] MEDS ORDERED: GABA300C PO (12:28)
[2021-04-28] MEDS ORDERED: TRIA1TAB3 PO (12:28)
[2021-04-28] MEDS ORDERED: DULO60CA59 PO (12:28)
[2021-04-28] MEDS ORDERED: OMEP20CA18 PO (12:28)
[2021-04-28] MEDS ORDERED: METF750T PO (12:28)
[2021-04-28] MEDS ORDERED: ASPI-999 PO (12:28)
[2021-04-28] MEDS ORDERED: MULT-1067 PO (12:28)
[2021-04-28] MEDS ORDERED: SITA25TA5 PO (12:28)
== END 2021-04-28 12:32 | disposition home or self-care (01) ==
LOC: PREOP 05:49
PROVIDERS: ATTEND Specialist
DX: Z01.818 Encounter for other preprocedural examination (principal)

== ENCOUNTER 2021-05-05 08:12 | Day surgery (SDC) | payer BC ==
[~2021-05-05] VITALS: Ht 157.5 cm; Wt 86.8 kg
[~2021-05-05 08:12] MED LIST changes: +ASPI-999 PO; +CARB1TAB19 PO; +DULO60CA59 PO; +GABA300C PO; +LORA-404 PO; +METF750T PO; +MULT-1067 PO; +OMEP20CA18 PO; +SITA25TA5 PO; +TRIA1TAB3 PO
[2021-05-05] MEDS ORDERED: MOXIFLOXACIN OPHTH SOLN 5 MG/ML 0.3 ML SYRINGE OP ONE (08:30)
[2021-05-05] MEDS ORDERED: LIDOCAINE PF 1% 2 ML VIAL IR PRN (08:30)
[2021-05-05] MEDS ORDERED: POVIDONE (BETADINE) OPHTH SOLN 5% 30 ML OP ONE (08:30)
[2021-05-05] MEDS ORDERED: TIMOLOL MALEATE 0.5% 5 ML (TIMOPTIC) BTL OU PRN (08:30)
[2021-05-05] MEDS: TETRACAINE 0.5% OPHTH SOLN 4 ML BTL (SINGLE DOSE ONLY) OU PRN ×4 (08:39→08:57)
[2021-05-05] MEDS: TROPICAMIDE 1% OPH SOLN (MYDRIACYL) 15 ML BTL OP SCH ×3 (08:46→08:57)
[2021-05-05] MEDS: PHENYLEPHRINE 10% OPHTH (NEO-SYN) 5 ML BTL OU SCH ×3 (08:46→08:57)
[2021-05-05 08:53] VITALS: BP 120/67
[2021-05-05] MEDS ORDERED: MIDAZOLAM 2 MG/2 ML (VERSED) VIAL ONE (09:04)
--- NOTE | 2021-05-05 09:26 | Ophthalmologist Pre-Op Note ---
Pre-Operative Progress Note H&P Reviewed The H&P was reviewed, patient examined and no changes noted. Date H&P Reviewed: May 05, 2021 Time H&P Reviewed: 09:26 Pre-Op Dx Cataract, Left Eye DEMETRIS SALDIVAR MD May 05, 2021 09:26
[2021-05-05] MEDS ORDERED: acetaZOLAMIDE ER 500 MG CAP (DIAMOX SEQUELS) PO ONE (09:30)
--- NOTE | 2021-05-05 09:50 | Ophthalmology Operative Report ---
Cataract removal/placement IOL PREOPERATIVE DIAGNOSIS: Cataract Left Eye POSTOPERATIVE DIAGNOSIS: Cataract Left Eye PROCEDURE: Cataract removal and placement of posterior chamber implant, left eye SURGEON: Siva Saldivar ANESTHESIA: Topical with sedation COMPLICATIONS: None ESTIMATED BLOOD LOSS: Minimal DESCRIPTION OF PROCEDURE: After proper informed consent was obtained, the patient, a 60 female, was taken to the Operating Room and the left eye was anesthetized with tetracaine. The left eye was then prepped and draped in the usual manner. A wire lid speculum was placed. A paracentesis was made at the left hand position. Preservative free lidocaine was injected into the anterior chamber followed by viscoelastic. A clear corneal incision was made in the temporal position. A capsulorrhexis was preformed and the central nuclear and cortical material were removed. The posterior capsule was polished and an Moses 17.0 AU00T0 was placed into the capsular bag. The residual viscoelastic was aspirated and balanced saline solution was injected into the anterior chamber. Moxifloxacin was injected into the anterior chamber. The wound was checked and found to be water tight. The patient tolerated the procedure well without complications. SIVA SALDIVAR MD May 05, 2021 09:50
[2021-05-05 09:58] VITALS: BP 126/76
--- NOTE | 2021-05-05 15:57 | Anesthesia-General Post-Op ---
MAC Patient Condition Mental Status/LOC: Same as Preop Cardiovascular: Satisfactory Nausea/Vomiting: Absent Respiratory: Satisfactory Pain: Controlled Complications: Absent Post Op Complications Complications None Follow Up Care/Instructions Patient Instructions None needed. Anesthesiology Discharge Order Discharge Order Patient was seen after the procedure and she was doing well, no complaints, stable vital signs, no apparent adverse anesthesia problems. JULIÁN SNYDER DO May 05, 2021 15:57
== END 2021-05-05 10:01 ==
LOC: SDC 08:12
PROVIDERS: ATTEND Specialist
DX: E11.36 Type 2 diabetes mellitus with diabetic cataract (principal); H25.12 Age-related nuclear cataract, left eye; I10 Essential (primary) hypertension; Z79.899 Other long term (current) drug therapy; Z87.891 Personal history of nicotine dependence
CPT/HCPCS: 66984; 82947; V2632

== ENCOUNTER 2021-05-15 05:39 | Outpatient (CLI) | payer BC ==
[~2021-05-15] VITALS: Ht 157.5 cm; Wt 86.8 kg
== END 2021-05-15 13:10 | disposition home or self-care (01) ==
LOC: PREOP 05:39
PROVIDERS: ATTEND Specialist
DX: Z01.818 Encounter for other preprocedural examination (principal)

== ENCOUNTER 2021-05-19 08:21 | Day surgery (SDC) | payer BC ==
[~2021-05-19] VITALS: Ht 157.5 cm; Wt 86.8 kg
[2021-05-19] MEDS ORDERED: POVIDONE (BETADINE) OPHTH SOLN 5% 30 ML OP ONE (08:30)
[2021-05-19] MEDS ORDERED: MOXIFLOXACIN OPHTH SOLN 5 MG/ML 0.3 ML SYRINGE OP ONE (08:30)
[2021-05-19] MEDS ORDERED: LIDOCAINE PF 1% 2 ML VIAL IR PRN (08:30)
[2021-05-19] MEDS ORDERED: TIMOLOL MALEATE 0.5% 5 ML (TIMOPTIC) BTL OU PRN (08:30)
[2021-05-19] MEDS ORDERED: MIDAZOLAM 2 MG/2 ML (VERSED) VIAL ONE (08:37)
[2021-05-19 08:41] VITALS: BP 110/66
[2021-05-19] MEDS: TETRACAINE 0.5% OPHTH SOLN 4 ML BTL (SINGLE DOSE ONLY) OU PRN ×5 (08:46→09:03)
--- NOTE | 2021-05-19 08:51 | Ophthalmologist Pre-Op Note ---
Pre-Operative Progress Note H&P Reviewed The H&P was reviewed, patient examined and no changes noted. Date H&P Reviewed: May 19, 2021 Time H&P Reviewed: 08:51 Pre-Op Dx Cataract, Right Eye DEMETRIS SALDIVAR MD May 19, 2021 08:51
[2021-05-19] MEDS: PHENYLEPHRINE 10% OPHTH (NEO-SYN) 5 ML BTL OU SCH ×3 (08:53→09:03)
[2021-05-19] MEDS: TROPICAMIDE 1% OPH SOLN (MYDRIACYL) 15 ML BTL OP SCH ×3 (08:54→09:03)
[2021-05-19] MEDS ORDERED: acetaZOLAMIDE ER 500 MG CAP (DIAMOX SEQUELS) PO ONE (09:30)
--- NOTE | 2021-05-19 09:34 | Ophthalmology Operative Report ---
Cataract removal/placement IOL PREOPERATIVE DIAGNOSIS: Cataract Right Eye POSTOPERATIVE DIAGNOSIS: Cataract Right Eye PROCEDURE: Cataract removal and placement of posterior chamber implant, right eye SURGEON: Siva Saldivar ANESTHESIA: Topical with sedation COMPLICATIONS: None ESTIMATED BLOOD LOSS: Minimal DESCRIPTION OF PROCEDURE: After proper informed consent was obtained, the patient, a 60 female, was taken to the Operating Room and the right eye was anesthetized with tetracaine. The right eye was then prepped and draped in the usual manner. A wire lid speculum was placed. A paracentesis was made at the left hand position. Preservative free lidocaine was injected into the anterior chamber followed by viscoelastic. A clear corneal incision was made in the temporal position. A capsulorrhexis was preformed and the central nuclear and cortical material were removed. The posterior capsule was polished and Moses 17.0 AU00T0 IOL was placed into the capsular bag. The residual viscoelastic was aspirated and balanced saline solution was injected into the anterior chamber. Moxifloxacin was injected into the anterior chamber. The wound was checked and found to be water tight. The patient tolerated the procedure well without complications. SIVA SALDIVAR MD May 19, 2021 09:34
[2021-05-19 09:45] VITALS: BP 124/67
--- NOTE | 2021-05-19 12:53 | Anesthesia-General Post-Op ---
MAC Patient Condition Mental Status/LOC: Same as Preop Cardiovascular: Satisfactory Nausea/Vomiting: Absent Respiratory: Satisfactory Pain: Controlled Complications: Absent Post Op Complications Complications None Follow Up Care/Instructions Patient Instructions None needed. Anesthesiology Discharge Order Discharge Order Patient is doing well, no complaints, stable vital signs, no apparent adverse anesthesia problems. No complications reported per nursing. LIANNE POWELL CRNA May 19, 2021 12:53
== END 2021-05-19 09:45 | disposition home or self-care (01) ==
LOC: SDC 08:21
PROVIDERS: ATTEND Specialist
DX: E11.36 Type 2 diabetes mellitus with diabetic cataract (principal); H25.11 Age-related nuclear cataract, right eye; I10 Essential (primary) hypertension; R56.9 Unspecified convulsions; Z79.899 Other long term (current) drug therapy; Z87.891 Personal history of nicotine dependence; Z80.1 Family history of malignant neoplasm of trachea, bronchus and lung
CPT/HCPCS: 66984; 82947; V2632